=== PATIENT | female | born 1995 | race Caucasian/White ===

== ENCOUNTER 2020-12-09 10:12 | Emergency (ER) | payer OTHER ==
[~2020-12-09] VITALS: Ht 157.5 cm; Wt 80.7 kg
[~2020-12-09 10:12] MED LIST: HYDROCODON-ACE1 EAC7 PO; IBUPROFEN 800800 M1 PO; NORCO 5-325 TA1 EACH PO; PRENATAL MULTI1 EAC2 PO
[2020-12-09 10:56] LABS: ABSOLUTE EOSINOPHILS 0.1 thou/uL (0.0-0.7); ABSOLUTE LYMPHOCYTES 1.2 thou/uL (0.8-5.3); ABSOLUTE MONOCYTES 0.4 thou/uL (0.0-1.2); ABSOLUTE NEUTROPHILS 3.9 thou/uL (1.6-8.1); BASOPHILS 0.4 %; EOSINOPHILS 1.6 %; HEMATOCRIT 38.8 % (37.0-47.0); HEMOGLOBIN 13.3 gm/dL (12.0-15.0); LYMPHOCYTES 20.8 %; MCH 30.2 pg (26.0-34.0); MCHC 34.2 g/dL (28.0-37.0); MCV 88.2 fL (80.0-100.0); MONOCYTES 7.8 %; MPV 9.5 fl. (7.2-11.1); NUCLEATED RBCS 0 /100WBC; PLATELET COUNT* 228 thou/uL (150-400); POLYS 69.4 %; RBC 4.39 mil/uL (4.20-5.00); RDW-CV 11.6 % (10.5-14.5); WBC 5.6 thou/uL (4.0-11.0)
[2020-12-09 10:59] LABS: CALCIUM 8.8 mg/dL (8.5-10.1); CREATININE 0.8 mg/dL (0.6-1.3); POTASSIUM 3.7 mmol/L (3.5-5.1)
[2020-12-09 11:04] LABS: ALBUMIN 3.7 g/dL (3.4-5.0); TOTAL BILIRUBIN 0.5 mg/dL (<0.1-1.0); TOTAL PROTEIN 7.1 g/dL (6.4-8.2)
[2020-12-09] MEDS ORDERED: PROMETHAZI6.25 MG/5 PO (11:21)
[2020-12-09] MEDS ORDERED: TESSALON PERLE100 MG PO (11:21)
[2020-12-09 12:05] VITALS: BP 112/80
== END 2020-12-09 12:06 | disposition home or self-care (01) ==
LOC: M.ERS 10:12
PROVIDERS: Physician Assistant
DX: J06.9 Acute upper respiratory infection, unspecified (principal); Z20.822 Contact with and (suspected) exposure to COVID-19